=== PATIENT | male | born 1995 | race Asian ===

== ENCOUNTER 2016-07-12 19:52 | Emergency (ER) | payer OTHER ==
[~2016-07-12] VITALS: Ht 175.3 cm; Wt 93.0 kg
[2016-07-12 19:55] VITALS: BP 140/81; PULSE 97; RESP 14; TEMP 98.3; O2SAT 97
[2016-07-12] MEDS ORDERED: LIDOCAINE 1%/EPINEPHrine 1:100,000 SOLN 20 ML VIAL INFIL ONE (20:45)
--- NOTE | 2016-07-12 20:47 | PD ---
HPI Chief Complaint: Laceration/Skin Injury Time Seen by Provider: 20:38 Travel History International Travel<30 days: No Contact w/Intl Traveler<30days: No Traveled to known affect area: No History of Present Illness HPI 20-year-old male presents for evaluation of laceration inferior to right eyebrow. It was sustained 1.5 hours prior to examination. The patient reports that he was at [place]" doing an obstacle course when he jumped into a foam pit and a metal ring hit him in the right eyebrow. No loss of consciousness. He is complaining of laceration which is mildly tender. Denies any generalized headache, confusion or amnesia, nausea or vomiting, blurred vision. He denies any other injuries and has no other complaints. His last tetanus vaccination was within 5 years. [facility] Past Medical History Medical History: Denies Significant Hx Social History Alcohol Use: No Tobacco Use: No Substance Use: No Allergies-Medications (Allergen,Severity, Reaction): Coded Allergies: No Known Allergies (Unverified , 07/12/16) Review of Systems Except as stated in HPI: all other systems reviewed are Neg Physical Exam Narrative GENERAL: Well-developed well-nourished male in no acute distress SKIN: Warm and dry. 1.5 cm linear horizontal laceration inferior to right eyebrow. Minimal bleeding. HEAD: Atraumatic. Normocephalic. EYES: Pupils equal and round. No scleral icterus. No injection or drainage. ENT: No nasal bleeding or discharge. Mucous membranes pink and moist. CARDIOVASCULAR: Regular rate and rhythm. No murmur appreciated. RESPIRATORY: No accessory muscle use. Clear to auscultation. Breath sounds equal bilaterally. MUSCULOSKELETAL: No obvious deformities. No clubbing. No cyanosis. No edema. NEUROLOGICAL: Awake and alert. No obvious cranial nerve deficits. Motor grossly within normal limits. Normal speech. Data Data Last Documented VS Vital Signs Date Time Temp Pulse Resp B/P Pulse Ox O2 Delivery O2 Flow Rate FiO2 07/12/16 19:55 98.3 97 14 140/81 97 Room Air Orders Lidocai-Epi 1%-1:100,000 Inj (Xylocaine- (07/12/16 20:45) MDM Medical Decision Making Medical Screen Exam Complete: Yes Emergency Medical Condition: Yes Medical Record Reviewed: Yes Differential Diagnosis Facial laceration, facial fracture, contusion, intracranial hemorrhage Narrative Course 20-year-old male presents with laceration inferior to right eyebrow. He has no neurologic symptomology. Laceration will be repaired with sutures, he verbally consents. Procedures Procedure Narrative LACERATION LOCATION: Inferior to right eyebrow LENGTH: 1.5 cm NUMBER OF STITCHES/JEREMIAH: 4 REPAIR: The area of the laceration was prepped with Betadine and sterilely draped. The laceration was infiltrated with 1% lidocaine with epinephrine. The wound was copiously irrigated and explored without evidence of foreign body , tendon injury or neurovascular injury. The wound was closed using 6-0 PROLENE simple interrupted. This was a single layer repair. A sterile dressing was applied. The patient was advised to keep the dressing clean and dry. Patient tolerated the procedure well. Diagnosis Primary Impression: Facial laceration Qualified Code: S01.81XA - Facial laceration, initial encounter Additional Instructions: Wash gently with soap and water and apply antibiotic cream daily. Return in 5- 6 days for suture removal. Med/Other Pt SpecificInfo: No Change to Meds, Wound Care Disposition: 01 DISCHARGE HOME Condition: Stable Rajendra Tapia Jul 12, 2016 20:47
== END 2016-07-12 21:49 | disposition home or self-care (01) ==
LOC: NEPB 19:52
DX: S01.111A Laceration without foreign body of right eyelid and periocular area, initial encounter (principal); W22.8XXA Striking against or struck by other objects, initial encounter; Y93.44 Activity, trampolining; Y92.838 Other recreation area as the place of occurrence of the external cause
CPT/HCPCS: 12011